=== PATIENT | female | born 1980 | race Caucasian/White ===

== ENCOUNTER 2021-07-02 21:38 | Emergency (ER) | payer BC ==
[~2021-07-02] VITALS: Ht 155 cm; Wt 87.0 kg
[2021-07-02] MEDS ORDERED: fentaNYL INJ 100 MCG/2 ML AMP IVP STA (21:56)
[2021-07-02] MEDS ORDERED: KETOROLAC 30 MG/ML VIAL IVP STA (21:56)
[2021-07-02] MEDS ORDERED: ONDANSETRON 4 MG/2 ML (SDV) Z0FRAN IVP ONE (22:00)
[2021-07-02] MEDS ORDERED: NS IV 1000 ML 1,000 ML IV ONE (22:00)
[2021-07-02 22:02] LABS: BILIRUBIN,URINE NEGATIVE (NEGATIVE); CLARITY,URINE SL CLOUDY; COLOR,URINE YELLOW; GLUCOSE, URINE (UA) NEGATIVE (NEGATIVE); KETONES,URINE NEGATIVE (NEGATIVE); LEUKOCYTE ESTERASE ,URINE NEGATIVE (NEGATIVE); NITRITE,URINE NEGATIVE (NEGATIVE); PROTEIN,URINE TRACE (NEGATIVE)
[2021-07-02 22:11] LABS: BACTERIA,URINE FEW /HPF; RBC,URINE >100 /HPF; WBC,URINE 0-2 /HPF
[2021-07-02 22:20] LABS: BASOPHILS % (AUTO) 1 % (0-10); EOSINOPHILS # (AUTO) 0.1 10^3/uL (0.0-0.3); EOSINOPHILS % (AUTO) 1 % (0-10); HEMATOCRIT 39 % (35-52); HEMOGLOBIN 12.9 g/dL (11.5-16.0); LYMPHOCYTES % (AUTO) 53 % (12-44); MEAN CORPUSCULAR HEMOGLOBIN 29 pg (25-34); MEAN CORPUSCULAR HGB CONC 33 g/dL (32-36); MEAN CORPUSCULAR VOLUME 87 fL (80-99); MEAN PLATELET VOLUME 11.1 fL (9.0-12.2); MONOCYTES # (AUTO) 0.3 10^3/uL (0.0-1.0); MONOCYTES % (AUTO) 6 % (0-12); NEUTROPHILS # (AUTO) 2.3 10^3/uL (1.8-7.8); NEUTROPHILS % (AUTO) 40 % (42-75); PLATELET COUNT 224 10^3/uL (130-400); WHITE BLOOD COUNT 5.8 10^3/uL (4.3-11.0)
[2021-07-02 22:26] LABS: POTASSIUM 3.7 MMOL/L (3.6-5.0)
[2021-07-02 22:27] LABS: CALCIUM 9.4 MG/DL (8.5-10.1)
[2021-07-02 22:28] LABS: TOTAL PROTEIN 7.3 GM/DL (6.4-8.2)
[2021-07-02 22:30] LABS: BILIRUBIN,TOTAL 0.2 MG/DL (0.1-1.0)
[2021-07-02 22:32] LABS: CREATININE SERUM 0.84 MG/DL (0.60-1.30)
--- NOTE | 2021-07-02 22:41 | Diagnostic Imaging Report ---
INDICATION: Left flank pain, hematuria. TECHNIQUE: Multiple contiguous axial images were obtained through the abdomen and pelvis without the use of intravenous contrast. Auto Exposure Controls were utilized during the CT exam to meet ALARA standards for radiation dose reduction. COMPARISON: There is no prior CT for comparison. FINDINGS: The visualized portions of the lung bases are clear except for a calcified granuloma in the left lung base. There is no infiltrate, pleural fluid or free intraperitoneal air. The liver shows no focal lesion. Gallbladder appears normal. The spleen is not enlarged and shows no focal lesion. The adrenals and pancreas are normal. The right kidney appears normal. The left kidney shows hydronephrosis with some perinephric edema. There is hydroureter on the left side, down to the level of a stone at the left UVJ measuring approximately 3 mm. There is no retroperitoneal mass or adenopathy. There is no ascites or abnormal fluid collection. Visualized bowel loops are unremarkable. There is no overt adnexal lesion. IMPRESSION: There is left hydronephrosis and hydroureter, down to the level of a 3 mm stone at the left UVJ. There was no other significant finding. Dictated by: Dictated on workstation # [id number]
--- NOTE | 2021-07-02 22:56 | Diagnostic Imaging Report ---
INDICATION: Left flank pain. EXAMINATION: Abdominal film obtained at 10:49 p.m. COMPARISON: Recent CT study. FINDINGS: Abdominal bowel gas pattern is unremarkable. There is no overt obstruction or ileus. There is a small calcification in the left side of the pelvis, which appears to correspond to the left UVJ stone seen on the CT study. There are no other abnormal calculi. IMPRESSION: Unremarkable bowel gas pattern. Small left pelvic calcification is present which appears to correspond to the left UVJ stone seen on the CT study. Dictated by: Dictated on workstation # [id number]
--- NOTE | 2021-07-02 23:29 | ED GU-Female ---
General Chief Complaint: Abdominal/GI Problems Stated Complaint: LOW BACK PAIN/RADIATING/POSS KIDNEY STONE Nursing Triage Note: TO ED VIA POV AND AMBULATORY TO ROOM 5 WITH C/ LEFT LOWER BACK PAIN AND VOMITING SINCE 2049. Source: patient Exam Limitations: no limitations History of Present Illness Date Seen by Provider: Jul 02, 2021 Time Seen by Provider: 21:49 Initial Comments Here with left flank and left side pain and states that it feels like her previous kidney stone. She says its been many years since she has had 1 of those. States it came on all of a sudden about an hour or 2 prior to arrival. She has had vomiting as well. Denies blood in her urine or stool. Denies fever or chills. Timing/Duration: just prior to arrival Severity/Quality: moderate, severe Location: left flank Radiation: groin Activities at Onset: none Modifying Factors: Improves With Resting Associated Symptoms: abdominal pain; No dysuria, No fever/chills; lower back pain; No nausea/vomiting, No urinary frequency Allergies and Home Medications Allergies Coded Allergies: Amoxicillin (Verified Allergy, Unknown, 02/24/06) Patient Home Medication List Home Medication List Reviewed: Yes Review of Systems Review of Systems Constitutional: see HPI; No chills, No fever EENTM: no symptoms reported Respiratory: no symptoms reported Cardiovascular: No chest pain, No edema Gastrointestinal: abdominal pain, nausea Genitourinary: flank pain; denies hematuria : No Musculoskeletal: no symptoms reported All Other Systemes Reviewed Negative Unless Noted: Yes Past Remhdhi-Lxdyup-Nbzijy Hx Patient Social History Tobacco Use?: No Substance use?: No Alcohol Use?: No Immunizations Up To Date Second COVID19 Vaccination Ananda: NOVEMBER 2020 COVID19 Vaccine [place] Worker: MODERNA Past Medical History Surgery/Hospitalization HX: KIDNEY STONES PCOS Surgeries: Yes (Kidney stone) Respiratory: No Cardiac: No Neurological: No : No Genitourinary: Yes Kidney Stones Gastrointestinal: No Family Medical History Reviewed and Corrections made No Pertinent Family Hx Physical Exam Vital Signs Vital Signs - First Documented 07/02/21 21:46 Temp 36.0 Pulse 88 Resp 18 B/P (MAP) 151/104 (120) Pulse Ox 99 O2 Delivery Room Air Capillary Refill : Less Than 3 Seconds Height, Weight, BMI Height: '" Weight: lbs. oz. kg; 36.00 BMI Method: General Appearance: WD/WN, no apparent distress HEENT: PERRL/EOMI, pharynx normal Neck: full range of motion, supple Cardiovascular: regular rate, rhythm, no murmur Respiratory: lungs clear, normal breath sounds Gastrointestinal: non tender, soft Back: normal inspection, no CVA tenderness, no vertebral tenderness Extremities: non-tender, normal inspection Neurologic/Psychiatric: alert, oriented x 3 Skin: normal color, warm/dry Progress/Results/Core Measures Suspected Sepsis SIRS Temperature: Pulse: 88 Respiratory Rate: 18 Laboratory Tests 07/02/21 22:12: White Blood Count 5.8 Blood Pressure 151 /104 Mean: 120 Laboratory Tests 07/02/21 22:12: Creatinine 0.84, Platelet Count 224, Total Bilirubin 0.2 Results/Orders Lab Results Laboratory Tests Test 07/02/21 21:48 07/02/21 22:12 Range/Units Urine Color YELLOW Urine Clarity SL CLOUDY Urine pH 6.0 5-9 Urine Specific [place] >=1.030 1.016-1.022 Urine Protein TRACE H NEGATIVE Urine Glucose (UA) NEGATIVE NEGATIVE Urine Ketones NEGATIVE NEGATIVE Urine Nitrite NEGATIVE NEGATIVE Urine Bilirubin NEGATIVE NEGATIVE Urine Urobilinogen 0.2 < = 1.0 MG/DL Urine Leukocyte Esterase NEGATIVE NEGATIVE Urine RBC (Auto) 3+ H NEGATIVE Urine RBC >100 H /HPF Urine WBC 0-2 /HPF Urine Squamous Epithelial Cells 10-25 H /HPF Urine Crystals NONE /LPF Urine Bacteria FEW H /HPF Urine Casts NONE /LPF Urine Mucus LARGE H /LPF Urine Culture Indicated NO Urine Test NEGATIVE NEGATIVE White Blood Count 5.8 4.3-11.0 10^3/uL Red Blood Count 4.47 3.80-5.11 10^6/uL Hemoglobin 12.9 11.5-16.0 g/dL Hematocrit 39 35-52 % Mean Corpuscular Volume 87 80-99 fL Mean Corpuscular Hemoglobin 29 25-34 pg Mean Corpuscular Hemoglobin Concent 33 32-36 g/dL Red Cell Distribution Width 12.3 10.0-14.5 % Platelet Count 224 130-400 10^3/uL Mean Platelet Volume 11.1 9.0-12.2 fL Immature Granulocyte % (Auto) 0 % Neutrophils (%) (Auto) 40 L 42-75 % Lymphocytes (%) (Auto) 53 H 12-44 % Monocytes (%) (Auto) 6 0-12 % Eosinophils (%) (Auto) 1 0-10 % Basophils (%) (Auto) 1 0-10 % Neutrophils # (Auto) 2.3 1.8-7.8 10^3/uL Lymphocytes # (Auto) 3.0 1.0-4.0 10^3/uL Monocytes # (Auto) 0.3 0.0-1.0 10^3/uL Eosinophils # (Auto) 0.1 0.0-0.3 10^3/uL Basophils # (Auto) 0.0 0.0-0.1 10^3/uL Immature Granulocyte # (Auto) 0.0 0.0-0.1 10^3/uL Sodium Level 140 135-145 MMOL/L Potassium Level 3.7 3.6-5.0 MMOL/L Chloride Level 106 98-107 MMOL/L Carbon Dioxide Level 21 21-32 MMOL/L Anion Gap 13 5-14 MMOL/L Blood Urea Nitrogen 16 7-18 MG/DL Creatinine 0.84 0.60-1.30 MG/DL Estimat Glomerular Filtration Rate 74 BUN/Creatinine Ratio 19 Glucose Level 113 H 70-105 MG/DL Calcium Level 9.4 8.5-10.1 MG/DL Corrected Calcium 9.4 8.5-10.1 MG/DL Total Bilirubin 0.2 0.1-1.0 MG/DL Aspartate Amino Transf (AST/SGOT) 15 5-34 U/L Alanine Aminotransferase (ALT/SGPT) 16 0-55 U/L Alkaline Phosphatase 34 L 40-136 U/L C-Reactive Protein High Sensitivity 0.43 0.00-0.50 MG/DL Total Protein 7.3 6.4-8.2 GM/DL Albumin 4.0 3.2-4.5 GM/DL My Orders Orders - RAO FENG MD Cbc With Automated Diff (07/02/21 21:56) Comprehensive Metabolic Panel (07/02/21 21:56) Hs C Reactive Protein (07/02/21 21:56) Hcg,Qualitative Urine (07/02/21 21:56) Ua Culture If Indicated (07/02/21 21:56) Ed Iv/Invasive Line Start (07/02/21 21:56) Ns Iv 1000 Ml (Sodium Chloride 0.9%) (07/02/21 22:00) Ondansetron Injection (Zofran Injectio (07/02/21 22:00) Fentanyl Inj (Sublimaze Injection) (07/02/21 21:56) Ketorolac Injection (Toradol Injection) (07/02/21 21:56) Ct Abd/Pelvis Wo(Kidney Stone) (07/02/21 22:17) Abdomen/Kub 1view (07/02/21 ) Rx-Hydrocodone/Apap 5-325 Mg (Rx-Vicodin (07/02/21 23:30) Medications Given in ED Current Medications Medications Dose Ordered Sig/Enrike Route Start Time Stop Time Status Last Admin Dose Admin Ondansetron HCl 4 mg ONCE ONCE IVP 07/02/21 22:00 07/02/21 22:01 DC 07/02/21 22:18 4 MG Sodium Chloride 1,000 ml @ 0 mls/hr Q0M ONCE IV 07/02/21 22:00 07/02/21 22:01 DC 07/02/21 22:18 999 MLS/HR Vital Signs/I&O 07/02/21 21:46 Temp 36.0 Pulse 88 Resp 18 B/P (MAP) 151/104 (120) Pulse Ox 99 O2 Delivery Room Air Capillary Refill : Less Than 3 Seconds Blood Pressure Mean: 120 Progress Note : Progress Note Seen and evaluated. IV, labs, UA normal saline 1 L bolus, Zofran 4 mg IV, Toradol 30 mg IV and fentanyl 25 mcg IV ordered. Monitor patient. 2327: CT abdomen pelvis ordered which does show stone. She is comfortable currently. KUB has been ordered. We will send patient home with go pack of hydrocodone and write prescription for the morning. She will follow up with Dr. Sequeira as needed. Stone is at the ureteral vesicle junction and may pass. Strainer given. Discharged home with return precautions. Patient verbalized understanding instructions and agreement with plan. Diagnostic Imaging Diagonstic Imaging: CT Plain Films/CT/US/NM/MRI: abdomen, pelvis Comments [facility] [place], [place] NAME: CRYSTAL DUTTA [facility] REC#: [id number] PT STATUS: REG ER : 1980 PHYSICIAN: RAO FENG MD ADMIT DATE: 07/02/21/ER Draft Date of Exam:07/02/21 CT ABD/PELVIS WO(KIDNEY STONE) INDICATION: Left flank pain, hematuria. TECHNIQUE: Multiple contiguous axial images were obtained through the abdomen and pelvis without the use of intravenous contrast. Auto Exposure Controls were utilized during the CT exam to meet ALARA standards for radiation dose reduction. COMPARISON: There is no prior CT for comparison. FINDINGS: The visualized portions of the lung bases are clear except for a calcified granuloma in the left lung base. There is no infiltrate, pleural fluid or free intraperitoneal air. The liver shows no focal lesion. Gallbladder appears normal. The spleen is not enlarged and shows no focal lesion. The adrenals and pancreas are normal. The right kidney appears normal. The left kidney shows hydronephrosis with some perinephric edema. There is hydroureter on the left side, down to the level of a stone at the left UVJ measuring approximately 3 mm. There is no retroperitoneal mass or adenopathy. There is no ascites or abnormal fluid collection. Visualized bowel loops are unremarkable. There is no overt adnexal lesion. IMPRESSION: There is left hydronephrosis and hydroureter, down to the level of a 3 mm stone at the left UVJ. There was no other significant finding. Dictated on workstation # [id number] Dict: 07/02/212232 Trans: 07/02/212238 [facility] [id number] Interpreted by: DEEPTHI JOHNS MD Electronically signed by: Scott Imaging: Xray Plain Films/CT/US/NM/MRI: abdomen Comments [facility] [place] NAME: LUZMARIACRYSTAL Ana Lilia [facility] REC#: [id number] PT STATUS: REG ER : 1980 PHYSICIAN: RAO FENG MD ADMIT DATE: 07/02/21/ER Draft Date of Exam:07/02/21 ABDOMEN/KUB 1VIEW INDICATION: Left flank pain. EXAMINATION: Abdominal film obtained at 10:49 p.m. COMPARISON: Recent CT study. FINDINGS: Abdominal bowel gas pattern is unremarkable. There is no overt obstruction or ileus. There is a small calcification in the left side of the pelvis, which appears to correspond to the left UVJ stone seen on the CT study. There are no other abnormal calculi. IMPRESSION: Unremarkable bowel gas pattern. Small left pelvic calcification is present which appears to correspond to the left UVJ stone seen on the CT study. Dictated on workstation # [id number] Dict: 07/02/212251 Trans: 07/02/212255 [facility] [id number] Interpreted by: DEEPTHI JOHNS MD Electronically signed by: Departure Impression Primary Impression: Left ureteral stone Disposition: HOME, SELF-CARE Condition: Improved Departure-Patient Inst. Decision time for Depature: 23:34 Referrals: ROBERT WASSERMAN MD (PCP/Family) Primary Care Physician Patient Instructions: Kidney Stones in Adults, How to Strain Your Urine Add. Discharge Instructions: All discharge instructions reviewed with patient and/or family. Voiced understanding. Take medication as directed. You may take ibuprofen 400 to 600 mg (2 to 3 tablets) every 8 hours as needed for pain. You should do this for the next 3 days. Take other medications as directed. Drink plenty of fluids. Follow-up with Dr. Sequeira for recheck and further evaluation. Strain your urine and evaluated to see if stone is passed. Return for worse pain, fever, vomiting, weakness, breathing problems or other concerns as needed. Scripts Tamsulosin HCl (Flomax) 0.4 Mg Cap 0.4 MG PO DAILY for 14 Days, #14 CAP Prov: RAO FENG MD 07/02/21 Hydrocodone Bit/Acetaminophen (HYDROcodone/APAP 5 MG/325 MG TAB) 1 Tab Tab 1 TAB PO Q6H for Pain, #10 TAB 0 Refills Prov: RAO FENG MD 07/02/21 Ciprofloxacin HCl (Ciprofloxacin HCl) 500 Mg Tablet 500 MG PO BID, #10 TAB Prov: RAO FENG MD 07/02/21 Copy Copies To 1: DEWAYNE SEQUEIRA MD, TIMOTHY D MD Jul 02, 2021 23:29
[2021-07-02] MEDS ORDERED: ACHD5005 PO (23:36)
[2021-07-02] MEDS ORDERED: TMSL.4C PO (23:36)
[2021-07-02] MEDS ORDERED: CIPR500T5 PO (23:36)
[2021-07-02 23:58] VITALS: BP 108/60
== END 2021-07-02 23:58 | disposition home or self-care (01) ==
LOC: EDUNIT# 21:38 → ER 21:44
DX: N13.2 Hydronephrosis with renal and ureteral calculous obstruction (principal)
CPT/HCPCS: 36415; 74018; 74176; 80053; 81000; 84703; 85025; 86141

== ENCOUNTER → 2022-03-20 | Outpatient (CLI) | payer OTHER ==
[~2022-03-20] MED LIST: ACHD5005 PO; CIPR500T5 PO; TMSL.4C PO
--- NOTE | 2022-03-21 11:13 | Diagnostic Imaging Report ---
INDICATION: Routine screening. COMPARISON: 04/10/2016 and 02/15/2015. TECHNIQUE: 2D and 3D bilateral screening mammography was performed with CAD. FINDINGS: Both breasts are heterogeneously dense, limiting the sensitivity of mammography. An intraparenchymal lymph node in the outer left breast is noted. No spiculated mass or malignant-appearing microcalcifications are seen. The axillae are unremarkable. IMPRESSION: No mammographic features suspicious for malignancy are identified. ACR BI-RADS Category 2: Benign findings. Result letter will be mailed to the patient. Note: At least 10% of breast cancer is not imaged by mammography. Dictated by: Dictated on workstation # [id number]
== END ==
LOC: RAD 08:45
PROVIDERS: ATTEND Obstetrics & Gynecology
DX: Z12.31 Encounter for screening mammogram for malignant neoplasm of breast (principal)
CPT/HCPCS: 77063; 77067